=== PATIENT | male | born 1990 | race Hispanic/Latino ===

== ENCOUNTER 2019-01-31 12:59 | Emergency (ER) | payer SELFPAY ==
[2019-01-31] MEDS ORDERED: Adacel (T-DAP) 0.5 ML SYRINGE ONE (17:45)
[2019-01-31] MEDS ORDERED: Bacitracin Zinc 1 Packet ONE (17:45)
== END 2019-01-31 18:04 ==
LOC: ERS 12:59
DX: S61.213A Laceration without foreign body of left middle finger without damage to nail, initial encounter (principal); F17.210 Nicotine dependence, cigarettes, uncomplicated; W25.XXXA Contact with sharp glass, initial encounter
CPT/HCPCS: 90471; 90715

== ENCOUNTER 2021-10-21 20:55 | Emergency (ER) | payer SELFPAY ==
[2021-10-21 21:31] LABS: #Basophils 0.1 thou/uL (0.0-0.2); #Eosinphils 0.1 thou/uL (0.0-0.7); #Lymphocytes 1.5 thou/uL (1.20-3.40); #Monocytes 0.5 thou/uL (0.11-0.59); #Neutrophils 5.9 thou/uL (1.40-6.50); %Basophils 1.4 % (0.0-1.0); %Eosinophils 0.6 % (0.0-10.0); %Lymphocytes 18.9 % (21.0-51.0); %Monocytes 6.5 % (0.0-10.0); %Neutrophils 72.7 % (42.0-75.0); Hemoglobin 16.5 g/dL (14.0-18.0); Mean Corpuscular HGB CONC 34.7 g/dL (32.0-36.0); Mean Corpuscular Hemoglobin 32.8 pg (27.0-31.0); Mean Corpuscular Volume 94.4 fL (78.0-98.0); Mean Platelet Volume 7.9 fL (7.4-10.4); Platelet Count 226 thou/uL (130-400); RBC Distribution Width 11.6 % (11.5-14.5); Red Blood Cell (RBC) Count 5.03 mill/uL (4.70-6.10); White Blood Cell (WBC) Count 8.1 thou/uL (4.8-10.8)
[2021-10-21 21:32] LABS: Bilirubin Negative (Negative); Blood, Urine Negative (Negative); Clarity Clear (Clear); Glucose, Urine (Dipstick) Normal (Negative); Ketone, Urine Negative (Negative); Leukocyte Negative Leu/uL (Negative); Nitrite Negative (Negative); Protein, Urine (Dipstick) Negative (Neg-Trace); Specific Gravity, Urine 1.001 (1.002-1.036); Urobilinogen Normal mg/dL (Less than 2); pH, Urine 6.5 (5.0-9.0)
[2021-10-21 21:53] LABS: ALT (SGPT) 18 U/L (8-55); AST (SGOT) 22 U/L (5-34); Albumin 4.7 g/dL (3.5-5.0); Alkaline Phosphatase 75 U/L (40-110); Anion Gap 11 mmol/L (10-20); BUN (Urea Nitrogen) 7 mg/dL (8.9-20.6); Bilirubin, Total 0.7 mg/dL (0.2-1.2); Calc. Creatinine Clearance 0 mL/min (70-130); Carbon Dioxide 27 mmol/L (22-29); Chloride 105 mmol/L (98-107); Globulin 3.2 g/dL (2.4-3.5); Glucose 97 mg/dL (70-105); Potassium 3.3 mmol/L (3.5-5.1); Protein, Total 7.9 g/dL (6.0-8.3); Sodium 140 mmol/L (136-145)
[2021-10-22] MEDS ORDERED: cefTRIAXone\\ROCEPHIN 500 MG VIAL ONE (00:56)
[2021-10-22] MEDS ORDERED: Sterile Water 10 ML ONE ×2 (00:57→00:58)
== END 2021-10-22 01:12 | disposition home or self-care (01) ==
LOC: ERS 20:55
DX: N34.2 Other urethritis (principal); F17.210 Nicotine dependence, cigarettes, uncomplicated
CPT/HCPCS: 36415; 74176; 80053; 81003; 85025; 87491; 87591; 96372; J0696

== ENCOUNTER 2022-07-07 08:36 | Emergency (ER) | payer SELFPAY | END 2022-07-07 10:34 | disposition home or self-care (01) | LOC: ERS 08:36 | DX: S61.411D Laceration without foreign body of right hand, subsequent encounter (principal); W45.8XXD Other foreign body or object entering through skin, subsequent encounter | CPT/HCPCS: 99282 ==

== ENCOUNTER 2022-10-08 15:01 | Emergency (ER) | payer SELFPAY | END 2022-10-08 17:26 | disposition home or self-care (01) | LOC: ERS 15:01 | DX: S93.501A Unspecified sprain of right great toe, initial encounter (principal); W22.8XXA Striking against or struck by other objects, initial encounter ==